=== PATIENT | female | born 1970 | race Caucasian/White ===

== ENCOUNTER 2022-03-26 21:15 | Observation (INO) | payer SELFPAY ==
[~2022-03-26 21:15] MED LIST: ISOVUE-370 76%-LOCM 1 ML ONE
[2022-03-26 21:39] LABS: #Eosinphils 0.1 thou/uL (0.0-0.7); #Monocytes 0.6 thou/uL (0.11-0.59); #Neutrophils 9.9 thou/uL (1.40-6.50); %Basophils 0.2 % (0.0-1.0); %Eosinophils 0.5 % (0.0-10.0); %Lymphocytes 15.6 % (21.0-51.0); %Monocytes 4.9 % (0.0-10.0); %Neutrophils 78.8 % (42.0-75.0); Hemoglobin 13.7 g/dL (12.0-16.0); Mean Corpuscular HGB CONC 32.8 g/dL (32.0-36.0); Mean Corpuscular Hemoglobin 29.1 pg (27.0-31.0); Mean Corpuscular Volume 88.8 fL (78.0-98.0); Mean Platelet Volume 8.6 fL (7.4-10.4); Platelet Count 182 thou/uL (130-400); RBC Distribution Width 13.6 % (11.5-14.5); Red Blood Cell (RBC) Count 4.71 mill/uL (4.20-5.40); White Blood Cell (WBC) Count 12.6 thou/uL (4.8-10.8)
[2022-03-26] MEDS ORDERED: Boostrix 0.5 ML (Tdap) VIAL ONE ×2 (21:43→21:59)
[2022-03-26] MEDS ORDERED: CEFAZOLIN 2 GM VIAL ONE ×2 (21:43→21:59)
[2022-03-26 21:50] LABS: Prothrombin Time 13.5 sec (12.0-14.7)
[2022-03-26 21:51] LABS: PTT 27.1 sec (22.9-36.1)
[2022-03-26 22:02] LABS: ALT (SGPT) 39 U/L (8-55); AST (SGOT) 29 U/L (5-34); Albumin 3.7 g/dL (3.5-5.0); Alkaline Phosphatase 76 U/L (40-110); Anion Gap 16 mmol/L (10-20); BUN (Urea Nitrogen) 10 mg/dL (7.0-18.7); Bilirubin, Total 1.1 mg/dL (0.2-1.2); Calc. Creatinine Clearance 0 mL/min (70-130); Calcium 8.9 mg/dL (7.8-10.44); Carbon Dioxide 27 mmol/L (22-29); Chloride 101 mmol/L (98-107); Globulin 3.2 g/dL (2.4-3.5); Glucose 148 mg/dL (70-105); Potassium 3.3 mmol/L (3.5-5.1); Protein, Total 6.9 g/dL (6.0-8.3); Sodium 141 mmol/L (136-145)
[2022-03-26] MEDS ORDERED: Fentanyl 100 MCG/2 ML VIAL ONE (23:03)
[2022-03-27] MEDS ORDERED: Insulin Regular 300 UNITS/3 ML VIAL SC PRN ×2 (00:28)
[2022-03-27] MEDS ORDERED: traMADol HCl 50 MG TAB PO PRN ×2 (00:28)
[2022-03-27] MEDS ORDERED: Ondansetron ODT 4 MG TAB PO PRN (00:28)
[2022-03-27] MEDS ORDERED: hydrALAZINE 20 MG/ML VIAL SLOW IVP PRN (00:28)
[2022-03-27] MEDS ORDERED: Ondansetron PF 4 MG/2 ML Vial IVP PRN (00:28)
[2022-03-27] MEDS ORDERED: Dextrose 50% Abboject 50 ML SYRINGE SLOW IVP PRN (00:28)
[2022-03-27] MEDS ORDERED: Dextrose 5% in Water 1,000 ML IV PRN (00:28)
[2022-03-27] MEDS ORDERED: Sodium Chloride 0.9% 1,000 ML IV SCH (00:30)
[2022-03-27] MEDS ORDERED: Cyclobenzaprine 10 MG TAB PO PRN (00:32)
[2022-03-27 00:48] LABS: Magnesium 1.7 mg/dL (1.6-2.6); Phosphorus 3.5 mg/dL (2.3-4.7)
[2022-03-27 03:16] VITALS: BMI 37.8
[2022-03-27 05:11] LABS: #Lymphocytes 1.3 thou/uL (1.20-3.40); #Monocytes 0.6 thou/uL (0.11-0.59); #Neutrophils 5.6 thou/uL (1.40-6.50); %Basophils 0.1 % (0.0-1.0); %Eosinophils 0.3 % (0.0-10.0); %Lymphocytes 16.9 % (21.0-51.0); %Monocytes 7.7 % (0.0-10.0); Hemoglobin 12.4 g/dL (12.0-16.0); Mean Corpuscular HGB CONC 33.7 g/dL (32.0-36.0); Mean Corpuscular Hemoglobin 29.6 pg (27.0-31.0); Mean Corpuscular Volume 87.9 fL (78.0-98.0); Mean Platelet Volume 8.5 fL (7.4-10.4); Platelet Count 188 thou/uL (130-400); RBC Distribution Width 13.6 % (11.5-14.5); Red Blood Cell (RBC) Count 4.18 mill/uL (4.20-5.40); White Blood Cell (WBC) Count 7.5 thou/uL (4.8-10.8)
[2022-03-27 05:33] LABS: Anion Gap 13 mmol/L (10-20); BUN (Urea Nitrogen) 11 mg/dL (7.0-18.7); Calc. Creatinine Clearance 154 mL/min (70-130); Calcium 8.9 mg/dL (7.8-10.44); Carbon Dioxide 27 mmol/L (22-29); Chloride 102 mmol/L (98-107); Glucose 113 mg/dL (70-105); Magnesium 1.9 mg/dL (1.6-2.6); Potassium 3.4 mmol/L (3.5-5.1); Sodium 139 mmol/L (136-145)
[2022-03-27] MEDS: Acetaminophen 500 MG TAB PO SCH ×2 (05:55→12:13)
[2022-03-27] MEDS ORDERED: Potassium Chloride 20 MEQ TAB PO SCH (08:00)
[2022-03-27] MEDS ORDERED: Loratadine 10 MG TAB PO SCH (09:00)
[2022-03-27] MEDS ORDERED: Non-Formulary Item 1 EACH (Loratadine [Claritin] 10 MG Capsule) PO SCH (09:00)
[2022-03-27] MEDS ORDERED: Non-Formulary Item 1 EACH (Esomeprazole Magnesium [Nexium] 20 MG Capsule.Dr) PO SCH (09:00)
[2022-03-27] MEDS ORDERED: Senokot S 8.6-50 MG TAB PO SCH (09:00)
[2022-03-27] MEDS ORDERED: Famotidine 20 MG TAB PO SCH (09:00)
[2022-03-27] MEDS ORDERED: Polyethylene Glycol 3350 17 GM Packet PO SCH (09:00)
[2022-03-27] MEDS ORDERED: FLUoxetine HCl 20 MG CAP PO SCH (09:00)
[2022-03-27 11:52] VITALS: BP 109/67; TEMP 98.2
== END 2022-03-27 14:05 | disposition home or self-care (01) ==
LOC: ERS 21:15 → NEURO 23:31
PROVIDERS: ADMIT Specialist; ATTEND Specialist
DX: S06.340A Traumatic hemorrhage of right cerebrum without loss of consciousness, initial encounter (principal); S70.11XA Contusion of right thigh, initial encounter; I10 Essential (primary) hypertension; E11.9 Type 2 diabetes mellitus without complications; U07.1 COVID-19; M47.816 Spondylosis without myelopathy or radiculopathy, lumbar region; Z79.84 Long term (current) use of oral hypoglycemic drugs; Z79.899 Other long term (current) drug therapy; W55.29XA Other contact with cow, initial encounter
CPT/HCPCS: 36415; 36416; 70450; 71260; 72125; 74177; 80048; 80053; 83735; 84100; 85025; 85610; 85730; 90471; 90715; 93005; 96365; 96375; G0378; G0390; J0690; J3010; J7050; Q9966; U0003; U0005